=== PATIENT | female | born 1960 | race Caucasian/White ===

== ENCOUNTER 2023-09-28 06:28 | Day surgery (SDC) | payer OTHER ==
[~2023-09-28] VITALS: Ht 149.9 cm; Wt 68.0 kg
[2023-09-28] MEDS ORDERED: MEPERIDINE 100 MG INJ. 100 MG/ML VIAL ONE (07:08)
[2023-09-28] MEDS ORDERED: MIDAZOLAM HCL 5 MG/5 ML VIAL ONE (07:09)
[2023-09-28 10:50] VITALS: O2SAT 99
[2023-09-28 14:20] VITALS: BP_SYST 113; PULSE 82; RESP 18
== END 2023-09-28 09:35 | disposition home or self-care (01) ==
LOC: SDS 06:28 → SMU 06:29 → SDS 09:35
PROVIDERS: ATTEND Student in an Organized Health Care Education/Training Program
DX: K59.00 Constipation, unspecified (principal); D12.3 Benign neoplasm of transverse colon; D12.7 Benign neoplasm of rectosigmoid junction; K57.30 Diverticulosis of large intestine without perforation or abscess without bleeding; K64.4 Residual hemorrhoidal skin tags; K64.8 Other hemorrhoids; M19.90 Unspecified osteoarthritis, unspecified site; Z88.2 Allergy status to sulfonamides; Z79.899 Other long term (current) drug therapy; Z80.0 Family history of malignant neoplasm of digestive organs
CPT/HCPCS: 45385; 88305; 99152; G0378; J2250; J2175